=== PATIENT | male | born 1980 | race Caucasian/White ===

== ENCOUNTER 2017-05-02 10:48 | Emergency (ER) | payer OTHER ==
[2017-05-02] MEDS ORDERED: HYDROmorphone 1 MG/ML Syringe IVPUSH ONE (11:32)
[2017-05-02] MEDS ORDERED: Ondansetron 4 MG/2 ML SDV IVPUSH ONE (11:32)
[2017-05-02] MEDS ORDERED: Sodium Chloride 0.9% 10 ML Syringe FLUSH PRN (11:33)
--- NOTE | 2017-05-02 11:43 | EDM.PDOC ---
ED HPI GENERAL MEDICAL PROBLEM - General Chief Complaint: ENT Problem Stated Complaint: INFECTED LOWER JAW Time Seen by Provider: 05/02/17 11:27 Source of Information: Reports: Patient, RN Notes Reviewed History Limitations: Reports: No Limitations - History of Present Illness INITIAL COMMENTS - FREE TEXT/NARRATIVE: 36-year-old gentleman presents emergency department today complaint of dental pain, he states he had a dental extraction done yesterday for a tooth in the lower jaw left side states over the last 12 hours he's had significant swelling in his jaw and the sensation of not being able to swallow he cannot open his mouth he is not had any fevers he is experiencing pain Face Pain Score (Numeric/FACES): 10 - Related Data Allergies Allergy/AdvReac Type Severity Reaction Status Date / Time No Known Allergies Allergy Verified 05/02/17 11:00 Home Meds: Home Meds Acetaminophen 650 mg PO ASDIRECTED PRN 05/02/17 [History] Clindamycin HCl 05/02/17 [History] Ibuprofen 600 mg PO ASDIRECTED PRN 05/02/17 [History] Past Medical History Respiratory History: Reports: Asthma Psychiatric History: Reports: ADHD Social & Family History - Tobacco Use Smoking Status *Q: Never Smoker - Caffeine Use Caffeine Use: Reports: Coffee - Recreational Drug Use Recreational Drug Use: No ED ROS ENT - Review of Systems Review Of Systems: See Below Constitutional: Denies: Fever, Chills HEENT: Reports: Dental Pain, Throat Pain, Throat Swelling, Other (Jaw pain) Respiratory: Reports: No Symptoms Cardiovascular: Reports: No Symptoms GI/Abdominal: Reports: No Symptoms : Reports: No Symptoms ED EXAM, ENT - Physical Exam Exam: See Below Text/Narrative:: Mouth mucosa is moist and pink no erythema or exudate is appreciated in the posterior pharynx however he has difficulty opening his mouth past 2 cm he does have marked edema over the lateral aspect of the jaw line left side as well as into the submandibular area Exam Limited By: No Limitations General Appearance: Alert, WD/WN, No Apparent Distress Eye Exam: Bilateral Eye: Normal Inspection Head: Atraumatic Neck: Normal Inspection, Supple, Non-Tender, Full Range of Motion Respiratory/Chest: No Respiratory Distress, Lungs Clear, Normal Breath Sounds, No Accessory Muscle Use, Chest Non-Tender Cardiovascular: Regular Rate, Rhythm, No Murmur Course - Vital Signs Last Recorded V/S: Last Vital Signs Temp 98.1 F 05/02/17 11:03 Pulse 95 05/02/17 13:47 Resp 16 05/02/17 13:47 BP 184/94 H 05/02/17 13:47 Pulse Ox 95 05/02/17 13:47 - Orders/Labs/Meds Orders: Active Orders 24 hr Category Date Time Status Peripheral IV Care [RC] . DIRECTED Care 05/02/17 11:33 Active Vital Signs [RC] Q1H Care 05/02/17 11:33 Active CULTURE BLOOD [BC] Urgent Lab 05/02/17 11:45 Received CULTURE BLOOD [BC] Urgent Lab 05/02/17 11:57 Received Iopamidol [Isovue-300 (61%)] Med 05/02/17 11:50 Active 100 ml IV . DIRECTED PRN Lactated Ringers [Ringers, Lactated] 1,000 ml Med 05/02/17 11:45 Active IV ASDIRECTED Sodium Chloride 0.9% [Normal Saline] 100 ml Med 05/02/17 12:00 Active IV ASDIRECTED Sodium Chloride 0.9% [Saline Flush] Med 05/02/17 11:33 Active 10 ml FLUSH ASDIRECTED PRN Blood Culture x2 Reflex Set [OM.PC] Urgent Oth 05/02/17 11:33 Ordered Peripheral IV Insertion Adult [OM.PC] Urgent Oth 05/02/17 11:33 Ordered Medication Orders Lactated Ringer's (Ringers, Lactated) 1,000 mls @ 500 mls/hr IV ASDIRECTED KAYLYN Last Admin: 05/02/17 12:04 Dose: 500 mls/hr Sodium Chloride (Normal Saline) 100 mls @ 3.5 mls/sec IV ASDIRECTED KAYLYN Stop: 05/02/17 23:00 Last Admin: 05/02/17 12:44 Dose: 3 mls/sec Iopamidol (Isovue-300 (61%)) 100 ml IV . DIRECTED PRN PRN Reason: RADIOLOGY EXAM Stop: 05/03/17 11:51 Last Admin: 05/02/17 12:45 Dose: 100 ml Sodium Chloride (Saline Flush) 10 ml FLUSH ASDIRECTED PRN PRN Reason: Keep Vein Open Last Admin: 05/02/17 12:44 Dose: 10 ml Labs: Laboratory Tests 05/02/17 05/02/17 05/02/17 Range/Units 11:45 11:45 11:45 WBC 15.1 H (4.5-11.0) K/uL RBC 4.93 (4.30-5.90) M/uL Hgb 14.3 (12.0-15.0) g/dL Hct 42.8 (40.0-54.0) % MCV 87 (80-98) fL MCH 29 (27-31) pg MCHC 33 (32-36) % Plt Count 229 (150-400) K/uL Neut % (Auto) 83 H (36-66) % Lymph % (Auto) 6 L (24-44) % [place] % (Auto) 11 H (2-6) % Eos % (Auto) 0 L (2-4) % Baso % (Auto) 0 (0-1) % Sodium 142 (140-148) mmol/L Potassium 4.1 (3.6-5.2) mmol/L Chloride 101 (100-108) mmol/L Carbon Dioxide 30 (21-32) mmol/L Anion Gap 11.1 (5.0-14.0) mmol/L BUN 9 (7-18) mg/dL Creatinine 0.9 (0.8-1.3) mg/dL Est Cr Clr Drug Dosing 122.52 mL/min Estimated GFR (MDRD) > 60 (>60) Glucose 98 (74-106) mg/dL Lactic Acid 1.7 (0.4-2.0) mmol/L Calcium 9.2 (8.5-10.1) mg/dL Total Bilirubin 1.6 H (0.2-1.0) mg/dL AST 35 (15-37) U/L ALT 67 (12-78) U/L Alkaline Phosphatase 114 (46-116) U/L C-Reactive Protein 16.86 H (0.0-0.3) mg/dL Total Protein 7.7 (6.4-8.2) g/dL Albumin 3.7 (3.4-5.0) g/dL Globulin 4.0 H (2.3-3.5) g/dL Albumin/Globulin Ratio 0.9 L (1.2-2.2) Meds: Medications Generic Name Dose Route Start Last Admin Trade Name Freq PRN Reason Stop Dose Admin Lactated Ringer's 1,000 mls @ 500 mls/hr 05/02/17 11:45 05/02/17 12:04 Ringers, Lactated IV 500 mls/hr ASDIRECTED KAYLYN Administration Sodium Chloride 100 mls @ 3.5 mls/sec 05/02/17 12:00 05/02/17 12:44 Normal Saline IV 05/02/17 23:00 3 mls/sec ASDIRECTED KAYLYN Administration Iopamidol 100 ml 05/02/17 11:50 05/02/17 12:45 Isovue-300 (61%) IV 05/03/17 11:51 100 ml . DIRECTED PRN Administration RADIOLOGY EXAM Sodium Chloride 10 ml 05/02/17 11:33 05/02/17 12:44 Saline Flush FLUSH 10 ml ASDIRECTED PRN Administration Keep Vein Open Discontinued Medications Generic Name Dose Route Start Last Admin Trade Name Buzzq PRN Reason Stop Dose Admin Fentanyl 100 mcg 05/02/17 13:24 05/02/17 13:27 Sublimaze IVPUSH 05/02/17 13:25 100 mcg ONETIME ONE Administration Hydromorphone HCl 1 mg 05/02/17 11:32 05/02/17 12:02 Dilaudid IVPUSH 05/02/17 11:33 1 mg ONETIME ONE Administration Metronidazole 500 mg/ Premix 100 mls @ 100 mls/hr 05/02/17 11:58 05/02/17 12: 12 IV 05/02/17 12:57 100 mls/hr ONETIME ONE Administration Penicillin G Potassium 2.5 50 mls @ 100 mls/hr 05/02/17 12:15 05/02/17 13:35 millunits/ Sodium Chloride IV 05/02/17 12:44 100 mls/hr ONETIME ONE Administration Ketorolac Tromethamine 30 mg 05/02/17 14:05 05/02/17 14:09 Toradol IVPUSH 05/02/17 14:06 30 mg ONETIME ONE Administration Nitroglycerin 0.4 mg 05/02/17 13:41 05/02/17 13:42 Nitrostat SL 05/02/17 13:42 0.4 mg ONETIME ONE Administration Ondansetron HCl 4 mg 05/02/17 11:32 05/02/17 12:01 Zofran IVPUSH 05/02/17 11:33 4 mg ONETIME ONE Administration Departure - Departure Time of Disposition: 14:22 Disposition: DC/Tfer to Acute Hospital 02 Clinical Impression: Submental abscess - Discharge Information Referrals: PCP,None [Primary Care Provider] - Forms: ED Department Discharge - My Orders Last 24 Hours: My Active Orders 05/02/17 11:33 Peripheral IV Care [RC] . DIRECTED Vital Signs [RC] Q1H Sodium Chloride 0.9% [Saline Flush] 10 ml FLUSH ASDIRECTED PRN Blood Culture x2 Reflex Set [OM.PC] Urgent Peripheral IV Insertion Adult [OM.PC] Urgent 05/02/17 11:45 CULTURE BLOOD [BC] Urgent Lactated Ringers [Ringers, Lactated] 1,000 ml IV ASDIRECTED 05/02/17 11:50 Iopamidol [Isovue-300 (61%)] 100 ml IV . DIRECTED PRN 05/02/17 11:57 CULTURE BLOOD [BC] Urgent 05/02/17 12:00 Sodium Chloride 0.9% [Normal Saline] 100 ml IV ASDIRECTED - Assessment/Plan Last 24 Hours: My Active Orders 05/02/17 11:33 Peripheral IV Care [RC] . DIRECTED Vital Signs [RC] Q1H Sodium Chloride 0.9% [Saline Flush] 10 ml FLUSH ASDIRECTED PRN Blood Culture x2 Reflex Set [OM.PC] Urgent Peripheral IV Insertion Adult [OM.PC] Urgent 05/02/17 11:45 CULTURE BLOOD [BC] Urgent Lactated Ringers [Ringers, Lactated] 1,000 ml IV ASDIRECTED 05/02/17 11:50 Iopamidol [Isovue-300 (61%)] 100 ml IV . DIRECTED PRN 05/02/17 11:57 CULTURE BLOOD [BC] Urgent 05/02/17 12:00 Sodium Chloride 0.9% [Normal Saline] 100 ml IV ASDIRECTED Plan: Assessment Acuity = acute Site and laterality = submental abscess Etiology = probably secondary to recent dental extraction Manifestations = pain, facial edema Location of injury = Home Lab values = WBC elevated at 15.1 consistent leukocytosis, total bilirubin elevated 1.6 consistent hyperbilirubinemia CRP elevated at 16.86, CT scan described abscess above Plan Called and discussed the case with 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 Blevins kindly accepted the patient in transport he will be transported via EMS ground, he has received 1 mg Dilaudid 100 g of fentanyl 30 mg of Toradol for pain he has had ice chips to eat blood cultures were done he's received 2.5 million units of penicillin IV and 500 mg Flagyl IV Patient was in agreement with the plan all questions were answered . This note was dictated using [employer] voice recognition software please call with any questions.
[2017-05-02] MEDS ORDERED: Lactated Ringers 1,000 ML IV SCH (11:45)
[2017-05-02] MEDS ORDERED: Iopamidol 612 MG/ML 100 ML Bottle IV PRN (11:50)
[2017-05-02] MEDS ORDERED: Penicillin G Potassium 2.5 MILLUNITS in Sodium Chloride 0.9% 50 ML IV STA (11:58)
[2017-05-02] MEDS ORDERED: metroNIDAZOLE/Normal Saline 500 MG in Premix Bag 1 BAG IV ONE (11:58)
[2017-05-02] MEDS ORDERED: Sodium Chloride 0.9% 100 ML IV SCH (12:00)
[2017-05-02] MEDS ORDERED: Penicillin G Potassium 2.5 MILLUNITS in Sodium Chloride 0.9% 50 ML IV ONE (12:15)
--- NOTE | 2017-05-02 12:57 | CT ---
CT soft tissue neck Indication: Jaw swelling. Total DLP 273. Findings: There appears to been recent extraction of the left mandibular second most posterior molar and/or premolar. No periosteal reaction. Foci of air and/or debris within the tooth cavity. Directly adjacent to this medially is a hypodense collection with ring enhancement within the left submental s pace measuring 3 cm superior to inferior x 1 cm in thickness. This does cross the midline and extend into the right submental space. Across the midline there is a smaller 2.3 cm superior to inferior x 0 .6 mm in thickness ring-enhancing fluid collection. There is some soft tissue swelling without absces s collection lateral to the left mandibular ramus. Subcutaneous edema most evident within the subment al space. Multiple reactive appearing submandibular lymph nodes. Submandibular glands are within norm al limits. Pharyngeal fat planes are preserved. No prevertebral soft tissue swelling. Oral pharyngeal airway is patent. Thyroid gland is unremarkable. There is subcutaneous edema about the neck to a lesser degree within the submental region. Scattered small posterior cervical space lymph nodes. Impression: 1. Submental rim-enhancing fluid collection as described above consistent with abscess.
[2017-05-02] MEDS ORDERED: fentaNYL 100 MCG/2 ML SDV IVPUSH ONE (13:24)
[2017-05-02] MEDS ORDERED: Nitroglycerin 0.4 MG Tab.SL SL ONE (13:41)
[2017-05-02] MEDS ORDERED: Ketorolac 30 MG/ML SDV IVPUSH ONE (14:05)
== END 2017-05-02 15:25 ==
LOC: JP.ED 10:48
DX: K12.2 Cellulitis and abscess of mouth (principal)
CPT/HCPCS: 36415; 70491; 80053; 83605; 85025; 86140; 87040; 96361; 96365; 96367; 96375; 99284; A9270; J1170; J1885; J2405; J2540; J3010; J7030; J7050; J7120; Q9967

== ENCOUNTER 2017-05-07 15:49 | Emergency (ER) | payer OTHER ==
[2017-05-07] MEDS ORDERED: Ketorolac 60 MG/2 ML SDV IM ONE (16:53)
[2017-05-07] MEDS ORDERED: Acetaminophen/oxyCODONE 325-10 MG Tab PO ONE (16:54)
[2017-05-07] MEDS ORDERED: cefTRIAXone 1 GM Vial IM ONE (16:55)
--- NOTE | 2017-05-07 16:59 | EDM.PDOC ---
ED HPI GENERAL MEDICAL PROBLEM - General Chief Complaint: ENT Problem Stated Complaint: LOWER JAW INFECTION/COMPLICATIONS Time Seen by Provider: 05/07/17 16:56 Source of Information: Reports: Patient History Limitations: Reports: No Limitations - History of Present Illness INITIAL COMMENTS - FREE TEXT/NARRATIVE: PT ARRIVED WITH INCREASED SWELLING IN THE FACIAL AREA. hE RECENTLY HAD A NUMBER OF ABCESSES DRAINED. hE HAD gerry DRAINS IN AND THEY WERE REMOVED. hE NOW HAS INCREASED SWELLING AND MORE PAIN. Onset: Gradual Duration: Hour(s):, Other ( HE WAS DISCHARGED FROM THE HOSP ON friday. ) Location: Reports: Face Associated Symptoms: Reports: No Other Symptoms - Related Data Allergies Allergy/AdvReac Type Severity Reaction Status Date / Time No Known Allergies Allergy Verified 05/07/17 16:38 Home Meds: Home Meds *Antibiotics 05/07/17 [History] *Tylenol With Codeine 05/07/17 [History] Past Medical History Respiratory History: Reports: Asthma Psychiatric History: Reports: ADHD - Past Surgical History Other HEENT Surgeries/Procedures: SURGICAL REPAIR OF SKULL Social & Family History - Tobacco Use Smoking Status *Q: Unknown Ever Smoked - Caffeine Use Caffeine Use: Reports: Coffee - Recreational Drug Use Recreational Drug Use: No ED ROS ENT - Review of Systems Review Of Systems: See Below Constitutional: Reports: No Symptoms HEENT: Reports: Other ( INCRESED SWELLING MIGEL THE CHIN NEAR THE DRAIN SITES. ) Respiratory: Reports: No Symptoms Cardiovascular: Reports: No Symptoms Endocrine: Reports: No Symptoms GI/Abdominal: Reports: No Symptoms : Reports: No Symptoms ED EXAM, ENT - Physical Exam Exam: See Below Text/Narrative:: PT ARRIVED WITH PAIN AND SWELLING INCREASE UNDER THE CHIN NEAR WHERE THE DRAINS WERE PULLED. Exam Limited By: Intoxication General Appearance: Alert, Anxious Eye Exam: Right Eye: Papilledema Ears: Normal TMs Nose: Normal Inspection Mouth/Throat: Other ( SWELLING UNDER THE CHIN. tHIS FEELS QUITE HARD LIKE IT MAY HAVE FILLED UP WITH PUS. ) Head: Atraumatic Neck: Other ( SWELLING UNDER THE CHIN WITH INCREASED TENDERNESS) Respiratory/Chest: No Respiratory Distress Cardiovascular: Regular Rate, Rhythm Course - Vital Signs Last Recorded V/S: Last Vital Signs Temp 36.0 C 05/07/17 16:40 Pulse 78 05/07/17 16:40 Resp 16 05/07/17 16:40 BP 160/72 H 05/07/17 16:40 Pulse Ox 96 05/07/17 16:40 - Orders/Labs/Meds Meds: Medications Discontinued Medications Generic Name Dose Route Start Last Admin Trade Name [place] PRN Reason Stop Dose Admin Ceftriaxone Sodium 1 gm 05/07/17 16:55 05/07/17 17:07 Rocephin IM 05/07/17 16:56 1 gm ONETIME ONE Administration Ketorolac Tromethamine 60 mg 05/07/17 16:53 05/07/17 17:07 Toradol IM 05/07/17 16:54 60 mg ONETIME ONE Administration Oxycodone/Acetaminophen 1 tab 05/07/17 16:54 05/07/17 17:08 Percocet 325-10 Mg PO 05/07/17 16:55 1 tab ONETIME ONE Administration - Re-Assessments/Exams Free Text/Narrative Re-Assessment/Exam: 05/07/17 17:30 pT IS TO BE TRAVELING BACK TO [facility]. wE DID CALL AND THEY DO NOT HAVE ent OR oRAL SURGERY. hE IS ADVISED TO GO IN THE MORNING TO t[facility] eR WHERE HE HAD THIS DRAINED AND HE WAS JUST DISCHARGED ON friday. hE WAS GIVEN TORODOL AND PERCOCET 10/325. hE WILL NOT BE GETTING HIS MEDS FROM THE GROUP HOME ACCORDING TO THE OFFICERS. hE WILL BE GIVEN A NEW PERSCRIPTION FOR AUGMENTIN AND TYLENOL 3. tHE ROADS TONIGHT ARE BAD SO HE WILL GO BY CAR TO [facility] IN THE AM. Departure - Departure Time of Disposition: 17:34 Disposition: Home, Self-Care 01 Condition: Fair Clinical Impression: Neck infection, Dental infection - Discharge Information Referrals: PCP,None [Primary Care Provider] - Forms: ED Department Discharge Care Plan Goals: IRRIGATE MOUTH WITH WARM WATER, AUGMENTIN 875 BID, TYLENOL 3 1 TAB Q6H PRN FOR PAIN
== END 2017-05-07 19:45 | disposition home or self-care (01) ==
LOC: JP.ED 15:49
DX: K04.7 Periapical abscess without sinus (principal); L08.9 Local infection of the skin and subcutaneous tissue, unspecified; Z98.890 Other specified postprocedural states
CPT/HCPCS: 96372; 99283; A9270; J0696; J1885